=== PATIENT | male | born 1940 | race Caucasian/White ===

== ENCOUNTER 2018-01-03 17:22 | Observation (INO) | payer OTHER, MEDICARE ==
[2018-01-03] MEDS ORDERED: NS 1,000 ML IV ONE (17:40)
[2018-01-03] MEDS ORDERED: LORazepam 2 MG/ML INJ IVP ONE (17:41)
--- NOTE | 2018-01-03 17:52 | EDPHY ---
H & P Time Seen by Provider: 01/03/18 17:38 HPI/ROS: HPI Pork chop stuck in esophagus. 77-year-old male by private vehicle from work. The patient reports that he got home late from work last night. He reports that he ate a dried chunk of pork. He reports that he felt this gets stuck in his lower esophagus. He then had an episode of vomiting about 45 min later. He reports he has had this happen to him in the past and usually after he vomits he is able to swallow foods and liquids and his symptoms resolved. He reports however that his symptoms did not resolve after this episode of vomiting and since this time he has not been able to swallow any solid foods or liquids. He complains of a low-grade dull ache in his epigastric area. He reports he has had endoscopy in the past secondary to this problem but cannot give me specifics on findings. ROS: Constitutional: No fever, no chills. No weakness. Respiratory: No cough. No shortness of breath. Cardiac: No chest pain, no palpitations. Gastrointestinal: As above, no diarrhea. Genitourinary: No hematuria. No dysuria or increased frequency with urination. Musculoskeletal: No back pain. No neck pain. No myalgias or arthralgias. Skin: No rashes. Neurological: No headache. No focal weakness or altered sensation. Past medical history: Prostatic hypertrophy, hypertension, right-sided nephrectomy, as above. Social history: Here by himself currently. Nonsmoker. Denies alcohol. Physical Exam: General Appearance: Alert, large man, pleasant, no distress. This patient is responding to questions appropriately and in full sentences. This patient appears well-hydrated and well-nourished. Eyes: Pupils equal and round no pallor or injection. No lid edema, erythema or injection. Respiratory: There are no retractions, lungs are clear to auscultation with good air movement bilaterally. Cardiovascular: Regular rate and rhythm. No murmur. Gastrointestinal: Abdomen is soft and nontender, no masses, bowel sounds normal. No focal tenderness at McBurney's point. No Shearer sign. Neurological: Motor sensory function is grossly intact. Cranial nerves are normal. Gait is normal. Skin: Warm and dry, no rashes. Musculoskeletal: Neck is supple and nontender. Extremities are symmetrical. All joints range without pain or impingement. Psychiatric: No agitation. No depression. Database: EKG: EKG time is 6:17 p.m.; EKG shows a narrow complex normal sinus rhythm with a ventricular rate of 76. Intermittent ventricular bigeminy. The patient has a history of this. The DE, QRS, QT intervals are within normal limits. There are no ST-T wave changes indicative of ischemic or injury pattern. No evidence of right heart strain. Interpreted by me. Imaging: Procedures: Emergency department course: Vital signs reviewed. Hypertensive. Vital signs otherwise normal. IV placed. He was started on IV normal saline with 500 cc to 1 L to be given over the next hour. He he will receive 1 mg of IV Ativan to see if this helps his food bolus to past. Otherwise plan will be to call GI for endoscopy. 6:30 p.m., patient was given a glass of water. He did not tolerate this. Immediately came back up. Endoscopy paged. 7:00 p.m., spoke with on-call emergency services professional Dr. Jaron Greenberg. Case discussed in detail with him. He will take this patient to the endoscopy suite for further management. I discussed this plan with the patient. All of his questions were answered. He is arranging have somebody pick him up after this procedure is performed. 8:30 p.m., patient admitted to the endoscopy suite in stable condition. Differential Diagnosis: The differential diagnosis on this patient includes but is not limited to retained lower esophageal food bolus. Acute coronary syndrome, pulmonary embolism, perforated peptic ulcer, pancreatitis unlikely. This represents a partial list of diagnoses considered. These considerations are based on history , physical exam, past history, reassessment and diagnostic testing. Smoking Status: Never smoked Constitutional: Initial Vital Signs Temperature (C) 36.8 C 01/03/18 17:26 Heart Rate 76 01/03/18 17:26 Respiratory Rate 18 01/03/18 17:26 Blood Pressure 180/91 H 01/03/18 17:26 O2 Sat (%) 98 01/03/18 17:26 O2 Delivery Mode Room Air Allergies/Adverse Reactions: No Known Allergies Allergy (Verified 01/04/18 09:09) Home Medications: Medication Instructions Recorded Terazosin HCl 20 mg PO HS 01/03/18 Febuxostat [Uloric] 80 mg PO DAILY 07/12/18 Losartan Potassium [Cozaar 25 mg 25 mg PO DAILY 01/04/18 (*)] Oxymetazoline HCl [Afrin Nasal 1 spray [place] BID PRN 01/04/18 [place] (OTC)] Triamcinolone 0.025% 1 [place] TP BID 01/04/18 [Triamcinolone 0.025% cream (*)] Medical Decision Making - Data Points Laboratory Results: Laboratory Results 01/03/18 18:15 01/03/18 18:15 Medications Given: Hydralazine HCl (Apresoline) 10 mg IVP Q6 PRN PRN Reason: SBP>160 Stop: 07/02/18 22:50 Last Admin: 01/04/18 03:54 Dose: 10 mg Sodium Chloride (Ns) 1,000 mls @ 100 mls/hr IV CONT WALDEMAR Stop: 07/02/18 22:44 Last Admin: 01/03/18 23:05 Dose: 1,000 mls Pantoprazole Sodium (Protonix) 40 mg PO DAILY WALDEMAR Stop: 07/02/18 22:44 Last Admin: 01/04/18 09:46 Dose: 40 mg Trazodone HCl (Trazodone) 50 mg PO HS WALDEMAR Stop: 07/02/18 22:45 Last Admin: 01/03/18 23:05 Dose: 50 mg Discontinued Medications Sodium Chloride (Ns) 1,000 mls @ 0 mls/hr IV EDNOW ONE; Wide Open PRN Reason: Protocol Stop: 01/03/18 17:41 Last Admin: 01/03/18 18:21 Dose: 1,000 mls Lorazepam (Ativan Injection) 1 mg IVP EDNOW ONE Stop: 01/03/18 17:42 Last Admin: 01/03/18 18:21 Dose: 1 mg Departure - Departure Disposition: To OP Cath/Surgery Clinical Impression: Food impaction of esophagus
--- NOTE | 2018-01-03 18:19 | CPEKG ---
Heart Rate: 79 RR Interval: 759 P-R Interval: 188 QRSD Interval: 100 QT Interval: 372 QTC Interval: 427 P [place]: 43 QRS [place]: -85 T Wave [place]: 26 EKG Severity - ABNORMAL ECG - EKG Impression: SINUS RHYTHM EKG Impression: VENTRICULAR BIGEMINY EKG Impression: PROBABLE INFERIOR INFARCT, AGE INDETERMINATE Electronically Signed By: Mike Eldridge 03-Jan-2018 22:03:38
[2018-01-03 18:40] LABS: PLATELET COUNT 173 10^3/uL (150-400)
--- NOTE | 2018-01-03 20:04 | POSTANESTH ---
Post Anesthetic Evaluation Cardiovascular Status: Similar to Pre-Op Cond (BP still high. Appears that patient is chronically poorly controlled given history of recent prescription for 2nd antihypertensive that pt has not started taking yet.) Respiratory Status: Normal, Stable Level of Consciousness/Mental Status: Can Participate in Eval, Alert and Oriented Pain Control: Adequate, Prn Tx Ordered Nausea/Vomiting Control: Adequate, Prn Tx Ordered Complications Possibly Related to Anesthesia: None Noted
--- NOTE | 2018-01-03 20:07 | PDANEPAE ---
ANE History of Present Illness 77 yo male with h/o esophageal stricture requiring dilation now with food stuck in esophagus. ANE Past Medical History - Cardiovascular History Hx Hypertension: Yes Hx Arrhythmias: No Hx Chest Pain: No Hx Coronary Artery / Peripheral Vascular Disease: No Hx CHF / Valvular Disease: No Hx Palpitations: No - Pulmonary History Hx COPD: No Hx Asthma/Reactive Airway Disease: No Hx Oxygen in Use at Home: No Hx Sleep Apnea: Yes Pulmonary History Comment: PCP has told pt he has PETRA. Trialed CPAP - pt did not tolerate device. - Endocrine History Hx Diabetes: No Hypothyroid: No Hyperthyroid: No Obesity: mild - Renal History Hx Renal Disorders: Yes Renal History Comment: RCC s/p nephrectomy 2007 - Liver History Hx Hepatic Disorders: No - GI History Gastrointestinal History Comment: esophageal stricture s/p esophageal dilation x2 - Other Health History Other Health History: gout ANE Review of Systems Review of Systems: - Systems Constitutional: Reports: no symptoms Gastrointestinal: Reports: other ANE Patient History - Allergies Allergies/Adverse Reactions: No Known Allergies Allergy (Unverified 01/03/18 17:25) - Home Medications Home Medications: Terazosin HCl 01/03/18 [Last Taken Unknown] - NPO status NPO Since - Liquids (Date): 01/03/18 NPO Since - Liquids (Time): 02:00 NPO Since - Solids (Date): 01/03/18 NPO Since - Solids (Time): 02:00 - Anes Hx Anes Hx: no prior problems - Smoking Hx Smoking Status: Never smoked Marijuana use: No - Alcohol Use Alcohol Use: Rarely - Family Anes Hx Family Anes Hx: neg - N/A ANE Labs/Vital Signs - Labs Result Diagrams: 01/03/18 18:15 01/03/18 18:15 - Vital Signs Blood Pressure: 163/69 Heart Rate: 66 Respiratory Rate: 18 O2 Sat (%): 95 Height: 182.88 cm Weight: 112.037 kg ANE Physical Exam - Airway Neck exam: FROM Mallampati Score: Class 2 - Pulmonary Pulmonary: clear to auscultation - Cardiovascular Cardiovascular: other (PVCs on monitor, obvious skipped beats on pulse palpation ) ANE Anesthesia Plan Anesthesia Plan: general endotracheal anesthesia
[2018-01-03] MEDS ORDERED: LIDOCAINE 2% 5 ML SDV ONE (20:15)
[2018-01-03] MEDS ORDERED: ROCURONIUM 50 MG/5 ML VIAL ONE (20:15)
[2018-01-03] MEDS ORDERED: PROPOFOL 200 MG/20 ML VIAL ONE (20:16)
[2018-01-03] MEDS ORDERED: fentaNYL 100 MCG/2 ML INJ ONE (20:16)
--- NOTE | 2018-01-03 20:22 | PDHPUP ---
History & Physical Update H&P update statement: This history and physical update is based on an assessment of the patient which was completed after admission or registration (within 24 hours), but prior to the surgery/procedure. H&P update: H&P reviewed & patient examined, no change in patient's condition since H&P completed
--- NOTE | 2018-01-03 20:23 | SOAPPROG ---
SOAP Progress Note Assessment/Plan: Assessment:Plan: see full dictated consult hx intermittent dysphagia w/o reflux sx's c/w EoE now with poss FB in esoph urgent EGD with anesthesia Jaron Greenberg MD 01/03/18 20:22 Objective: Vital Signs Temp Pulse Resp BP Pulse Ox 36.6 C 66 18 163/69 H 95 01/03/18 20:08 01/03/18 20:08 01/03/18 20:08 01/03/18 20:08 01/03/18 20:08 Laboratory Results 01/03/18 18:15 01/03/18 18:15 01/02/18 01/03/18 01/04/18 05:59 05:59 05:59 Intake Total 1000 Balance 1000 ICD10 Worksheet Patient Problems: Problems Problem Status Onset Food impaction of esophagus Acute
[2018-01-03] MEDS ORDERED: DEXAMETHASONE 4 MG/ML VIAL ONE (20:28)
[2018-01-03] MEDS ORDERED: SUCCINYLCHOLINE CHLORIDE 200 MG/10 ML SYR IVP ONE (20:28)
--- NOTE | 2018-01-03 21:41 | GIREPORT ---
[facility] - Endoscopy Department Patient Name: Shiva Castellanos Procedure Date: 01/03/2018 8:10 PM Patient Type: Inpatient Attending MD/ ER Physician: Preston Escalante Procedure: Upper GI endoscopy Indications: Dysphagia, Foreign body in the esophagus Providers: Onofre Greenberg MD Requesting Provider: Amy Petersen MD Medicines: General Anesthesia Complications: No immediate complications. Estimated blood loss: Minimal. Description of Procedure: After obtaining informed consent, the endoscope was passed under direct vision. Throughout the procedure, the patient's blood pressure, pulse, and oxygen saturations were monitored continuously. The Endoscope was intro duced through the mouth, and advanced to the third part of duodenum. The uppe r GI endoscopy was accomplished without difficulty. The patient tolerated th e procedure well. Findings: Food was found in the lower third of the esophagus. Removal was accompl ished with a large-capacity forceps and Rubalcava net. Estimated blood loss was mi nimal. The upper third of the esophagus was normal. Biopsies were taken with a cold forceps for histology. Estimated blood loss was minimal. Localized mild mucosal changes characterized by erythema and inflammati on were found in the lower third of the esophagus. Biopsies were taken wit h a cold forceps for histology. Estimated blood loss was minimal. One stenosis was found at the gastroesophageal junction. This stenosis was moderately severe and. The stenosis was traversed. A TTS dilator was pa ssed through the scope. Dilation with a 12-13.5-15 mm x 5.5 cm CRE balloon dilator was performed to 15 mm. The dilation site was examined and show ed mild improvement in luminal narrowing. Estimated blood loss was minimal . Localized moderate mucosal changes characterized by congestion, erythem a and inflammation were found at the gastroesophageal junction. Biopsies were taken with a cold forceps for histology. Estimated blood loss was minim al. Scattered moderate inflammation characterized by erosions, erythema, friability and granularity was found in the duodenal bulb and in the fi rst portion of the duodenum. Biopsies were taken with a cold forceps for histology. Estimated blood loss was minimal. The second portion of the duodenum was normal. Biopsies were taken with a cold forceps for histology. Estimated blood loss was minimal. The exam was otherwise without abnormality. Estimated Blood Loss: Estimated blood loss was minimal. Post Op Diagnosis: - Food was found in the esophagus. Removal was successful. - Normal upper third of esophagus. Biopsied. - Erythematous, inflamed mucosa in the esophagus. Biopsied. - Esophageal stenosis. Dilated. - Congested, erythematous and inflamed mucosa in the gastroesophageal junction. Biopsied. - Duodenitis. Biopsied. - Normal second portion of the duodenum. Biopsied. - The examination was otherwise normal. Recommendation: - Await pathology results. - My office will call with the pathology result with 5-7 days. If you h ave not heard from my office by 12-14, do not assume the pathology is brandy l, please call [phone] to get the pathology results. - Use Protonix (pantoprazole) 40 mg PO daily. Take 30-60 minutes before breakfast. - Follow an antireflux regimen. - Cut food into small pieces and chew well. - If biopsy are consistent with Eosinophilic Esophagitis (EoE), then re alex to registered dietitian and consider swallowed not inhaled fluticasone prn. - Observe patient in same day observation unit for ongoing care. Given his untreteed sleep apnea. Discharge in am - Resume regular diet. - Return to GI clinic in 6 weeks. - Repeat upper endoscopy in 4 weeks for retreatment, pending biopst res ults. - Return to primary care physician as previously scheduled. - Thank you for allowing me to help in your patient's care. Do not hesi bhagat to call with any questions. Attending Participation: I personally performed the entire procedure. Yari Adhikari M.D Onofre Greenberg MD 01/03/2018 9:40:28 PM This report has been signed electronicallyMathew MD Yari Number of Addenda: 0 Note Initiated On: 01/03/2018 8:10 PM [email or web address]
[2018-01-03] MEDS ORDERED: ACETAMINOPHEN 500 MG TAB PO PRN (21:51)
[2018-01-03] MEDS ORDERED: ONDANSETRON 4 MG/2 ML VIAL IVP PRN ×2 (21:51→22:44)
[2018-01-03] MEDS ORDERED: LR 500 ML IV PRN (21:51)
[2018-01-03] MEDS ORDERED: NALOXONE HCL 0.4 MG/ML INJ IVP PRN (21:51)
[2018-01-03] MEDS ORDERED: ACETAMINOPHEN 325 MG TAB PO PRN (22:44)
[2018-01-03] MEDS ORDERED: PROMETHAZINE HCL 25 MG/ML INJ IVP PRN (22:44)
[2018-01-03] MEDS ORDERED: NS 1,000 ML IV SCH (22:45)
[2018-01-03] MEDS ORDERED: traZODone 50 MG TAB PO SCH (22:46)
[2018-01-03] MEDS ORDERED: hydrALAZINE 20 MG/ML VIAL IVP PRN (22:51)
[2018-01-03] MEDS: PANTOPRAZOLE SODIUM 40 MG TAB PO SCH (23:05)
--- NOTE | 2018-01-03 23:13 | GCON ---
[f rep st] CONSULTATION DATE OF CONSULTATION: 01/03/2018 REFERRING PHYSICIAN: Mike Eldridge DO INDICATION FOR CONSULTATION: History of dysphagia and probable foreign body. HPI: The patient is a pleasant 77-year-old male, who has a past medical history significant for gout, blood pressure that has required the addition of a 2nd medication initially, and sleep apnea. He says he has had intermittent dysphagia. So, he remembers having endoscopies in the past where he has had dilations done down in [place], which is probably [facility], [facility], Dr. Spencer Simmons. He has not had any endoscopy in many years and has not had problems with dysphagia. He does have hay fever, allergies that have been acting up recently. Last night, he went home and was going to cook a pork chop but, unfortunately, dosed off. The pork chop was over cooked. He then decided he would try to eat it and ate a large piece that got lodged in his esophagus at approximately 2 a.m. He thought it would pass, and it has not passed. He presents to the emergency room this evening for evaluation. They tried a number of different maneuvers, including Ativan, which were not successful, and they contacted me to evaluate him for probable foreign body in his esophagus and history of dysphagia. The patient did not complain of recurrent heartburn symptoms or regurgitation. He has not had any dysphagia recently. He does not take any nonsteroidal anti- inflammatory drugs. He denies chest pain, diaphoresis. He does not have any abdominal pain. There has been no change in his stool habits. He is now in the emergency room with a possible foreign body, and I have been called in to help and evaluate and treat in that regard. PAST MEDICAL/SURGICAL HISTORY: Gout, hypertension, BPH, sleep apnea. 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 MEDICATIONS AT HOME: Include Uloric for gout, terasozin for BPH, and he cannot remember his 2nd blood pressure medication. ALLERGIES: NKDA SOCIAL HISTORY: Drinks alcohol rarely. Does not smoke cigarettes. FAMILY HISTORY: An uncle may have had cancer in his 60s. He does not know of anyone specifically with colon cancer or colon polyps in his family other than himself. He remembers having 1 or 2 polyps with a colonoscopy, and that was more than 5 years ago. REVIEW OF SYSTEMS: A complete review of systems was performed and is negative other than noted in the HPI. PHYSICAL EXAM: GENERAL: A well-developed, well-nourished, overweight male in no acute distress, sitting in his bed. VITAL SIGNS: Blood pressure is 163/69. Pulse is 66, respiratory rate 18. He is 95% on room air. Temperature 36.6. EYES: Anicteric. FARZANEH. EOMI. MOUTH: No lesions. Moist mucous membranes. NECK: Supple. Full range of motion. No JVD. BACK: No spine tenderness. No CVA tenderness. LUNGS: Clear to auscultation. CARDIAC: S1, S2. Regular rate and rhythm. No murmurs, rubs or gallops appreciated. ABDOMEN: Bowel sounds are normal pitch. Incision is soft, nontender. No hepatosplenomegaly. EXTREMITIES: No cyanosis, clubbing, or edema. NEUROLOGIC: Cranial nerves intact. Nonfocal. SKIN: No stigmata of advanced liver disease. No rashes. LABORATORY DATA: WBC 6.93, hemoglobin 16.5, hematocrit 47.6, platelet count 173. Sodium 141, potassium 4.1, chloride 110, bicarb 22, BUN 19, creatinine 1.5 , glucose 98, calcium 9.3. ASSESSMENT: 1. Probable foreign body in a patient with intermittent dysphagia and history of EGDs with dilations, possible eosinophilic esophagitis. 2. History of colon polyps. Last colonoscopy over 5 years ago. 3. Hypertension. 4. Benign prostatic hypertrophy. 5. Sleep apnea. RECOMMENDATIONS: 1. Urgent EGD for evaluation and treatment of foreign body, biopsies of both proximal and distal esophagus for eosinophilic esophagitis pending results of endoscopy. 2. Try to obtain his previous colonoscopy and endoscopy reports. If he has had precancerous polyps removed before, he should be on a 5-year colonoscopy interval. 3. Likely, I will be prescribing pantoprazole 40 mg once daily half an hour before breakfast. This is the initial treatment for EOE to see if it is PPI- responsive EOE and is certainly initial treatment for acid reflux issues. 4. Antireflux lifestyle changes. 5. Cut food into small pieces and chew very well. 6. Further recommendations to follow results of EGD. Given the patient's multiple medical issues, body habitus, untreated sleep apnea and possible foreign body in the esophagus, this would be a higher risk procedure than normal. I have asked Anesthesia to be present for the entire procedure. They will likely intubate the patient secondary to the possible foreign body and aspiration risks. Thank you for allowing me to participate in patient's healthcare. Do not hesitate to call me if you have any questions. Copy requested to: MD July Sanabria Dr. /[id number]/MODL MTDD
--- NOTE | 2018-01-03 23:33 | GHP ---
[f rep st] HISTORY AND PHYSICAL DATE OF ADMISSION: 01/03/2018 CHIEF COMPLAINT: Food stuck. HISTORY: Shiva is a 77-year-old male, who works as a trash collector truck driver. He got home at 2 o'clock in the morning last night, ate a pork chop. It got stuck in his lower esophagus. He has had this in past, and he can often vomit to clear the food out but this time he was completely unsuccessful in vomiting out the obstruction. He did vomit, but the obstruction persisted. He finally presented to the emergency room and went urgently to the EGD performed by Dr. Greenberg. He was found to have a piec e of pork stuck in the lower third of his esophagus. He had a coljmrzd-eg-dkyelv stenosis at the GE junction that was balloon dilated by Dr. Greenberg. Biopsies were performed. Plan is for Protonix and repeat EGD in 4 weeks for retreatment. Postsurgery, there was some concern with his untreated obstructive sleep apnea regarding his respirat ory status, so he is being admitted to observation for further respiratory monitoring with anticipati on of discharge home tomorrow when anesthesia has worn off. PAST MEDICAL HISTORY: 1. BPH. 2. Hypertension. 3. Right-sided nephrectomy for renal cell carcinoma. 4. Obstructive sleep apnea. CPAP noncompliant. 5. Insomnia. MEDICATIONS: Please see computer record for full detailed list. ALLERGIES: No known drug allergies. SOCIAL HISTORY: No smoking. No alcohol. He lives alone. He has a trash collector truck driver for [employer]. REVIEW OF SYSTEMS: Complete review of systems obtained. Review of systems negative on constitutiona l, HEENT, GI, pulmonary, cardiovascular, , hematology, skin, musculoskeletal, endocrine, and psych, except for positives as in HPI. FAMILY HISTORY: Reviewed and noncontributory to presenting complaint. PHYSICAL EXAMINATION: GENERAL: Well-developed, well-nourished male, in no acute distress. VITAL SI GNS: Temperature is 36.8, pulse 64, blood pressure 163/77, saturating 97% on 3 L. EYES: Normal con junctivae. Pupils equal, round, reactive to light. ENT: Normal ears and nose. Hearing intact. No rmal teeth. Oropharynx moist. NECK: Trachea midline. No thyromegaly. CHEST: Normal effort. ANGIE GS: Clear to auscultation bilaterally. CARDIOVASCULAR: Regular rhythm. No murmur. No extremity e tushar. ABDOMEN: Soft, nontender. No hepatosplenomegaly. SKIN: Warm, dry, intact. No rash. MUSCU LOSKELETAL: No cyanosis or clubbing. Strength 5/5 of upper and lower extremities. NEURO: Cranial nerves intact. Normal sensation to light touch. PSYCHIATRIC: Alert and oriented x3. Normal affect . Normal judgment. Normal memory. LABORATORY DATA: White count 6.93, hematocrit 47.6, platelets 173. Sodium 141, potassium 4.1, chlor carmen 110, bicarb 22, BUN 19, creatinine 1.5, glucose 98. EKG viewed by me. My personal interpretatio n is normal sinus rhythm, no ST-T wave changes. This case was personally discussed with Dr. Yari bakerarding findings on EGD. He thinks there is a possibility of malignancy, and biopsies are pending. ASSESSMENT/PLAN: 1. Esophageal stricture with status post foreign body dislodgement and subsequent dilation of the st ricture: He should be discharged on a proton pump inhibitor. Repeat esophagogastroduodenoscopy in 4 weeks for repeat dilation. Biopsies are pending, and per Dr. Greenberg, there is a possibility of this being malignant. For now, we are okay to advance his diet. 2. Obesity, body mass index of 39, with obstructive sleep apnea: He is continuous positive airway p ressure intolerant. Plan is to watch oxygen saturations closely post anesthesia. 3. Acute renal failure: He is probably dehydrated due to his decreased oral intake for the last 24 hours. We will hydrate with intravenous fluid overnight and recheck in the morning. 4. Hypertension: Blood pressures are very elevated here. We will monitor closely, and he may need to more aggressively pursue antihypertensive medications as an outpatient. 5. Benign prostatic hypertrophy: He takes Terazosin at home. He reports every 2 hours getting up i n the middle of the night to urinate with severe frequency. We will check a bladder scan to rule out bladder outlet obstruction. CODE STATUS: Full. ADMISSION STATUS: We will admit to observation. Re-evaluate tomorrow. DVT PROPHYLAXIS: He is high risk. We will place him on subcu Lovenox. /[id number]/MODL
[2018-01-04] MEDS: PANTOPRAZOLE SODIUM 40 MG TAB PO SCH (09:46)
[2018-01-04] MEDS ORDERED: OXYMETAZOLINE 30 ML NASAL SPRAY EACHNARE PRN (13:46)
--- NOTE | 2018-01-04 13:50 | PDDCSUM ---
Discharge Summary Discharge Summary: This is a 77 yo male who was admitted due to foreign esophageal body. He was admitted. GI was consulted. Endoscopy with foreign body removal was performed. He has been started on Protonix 40mg daily. Biopsies were obtained and GI will f /u with results. Repeat endoscopy in 4 weeks is needed He has a hx of CRI and unilateral kideny. He was given IVF. He is back to baseline DDX: -Esophageal foreign body -Acute on chronic renal failure -solitary kidney Exam: NAD AAOX3 RRR CTAB S/NT/ND MEDS: SEE MED REC, PROTONIX STARTED TOTAL TIME SPENT ON D/C IS 35 MIS
[2018-01-04] MEDS ORDERED: LOSARTAN POTASSIUM 25 MG TAB PO SCH (14:00)
[2018-01-04 14:14] VITALS: BP 163/74
[2018-01-04] MEDS ORDERED: TRIAMCINOLONE 0.025% 15 GM CRTUBE TP SCH (21:00)
[2018-01-04] MEDS ORDERED: TERAZOSIN HCL 5 MG CAP PO SCH (21:00)
[2018-01-05] MEDS ORDERED: FEBUXOSTAT PO SCH (09:00)
== END 2018-01-04 14:32 | disposition home or self-care (01) ==
LOC: FSGY 19:54 → F3E 21:14 → F2W 22:31
PROVIDERS: ADMIT Internal Medicine; ATTEND Family Medicine
PROC: 0D748ZZ Dilation of Esophagogastric Junction, Via Natural or Artificial Opening Endoscopic (ICD-10-PCS; principal; 2018-01-03 20:30)
PROC: 0DB18ZX Excision of Upper Esophagus, Via Natural or Artificial Opening Endoscopic, Diagnostic (ICD-10-PCS; principal; 2018-01-03 20:30)
PROC: 0DB38ZX Excision of Lower Esophagus, Via Natural or Artificial Opening Endoscopic, Diagnostic (ICD-10-PCS; principal; 2018-01-03 20:30)
PROC: 0DB98ZX Excision of Duodenum, Via Natural or Artificial Opening Endoscopic, Diagnostic (ICD-10-PCS; principal; 2018-01-03 20:30)
PROC: 0DC38ZZ Extirpation of Matter from Lower Esophagus, Via Natural or Artificial Opening Endoscopic (ICD-10-PCS; principal; 2018-01-03 20:30)
PROC: 0DB48ZX Excision of Esophagogastric Junction, Via Natural or Artificial Opening Endoscopic, Diagnostic (ICD-10-PCS; principal; 2018-01-03 20:30)
DX: G47.33 Obstructive sleep apnea (adult) (pediatric) (principal); K22.2 Esophageal obstruction; T18.128A Food in esophagus causing other injury, initial encounter; K29.80 Duodenitis without bleeding; N17.9 Acute kidney failure, unspecified; N18.9 Chronic kidney disease, unspecified; E86.9 Volume depletion, unspecified; R13.10 Dysphagia, unspecified; N40.1 Benign prostatic hyperplasia with lower urinary tract symptoms; I10 Essential (primary) hypertension; G47.00 Insomnia, unspecified; E66.9 Obesity, unspecified; Z68.39 Body mass index [BMI] 39.0-39.9, adult; M10.9 Gout, unspecified; Y92.009 Unspecified place in unspecified non-institutional (private) residence as the place of occurrence of the external cause; Z85.528 Personal history of other malignant neoplasm of kidney; Z86.010 Personal history of colon polyps; Z90.5 Acquired absence of kidney
CPT/HCPCS: 43239; 43247; 43249; 93005; 96374; 99285; C1726; G0378; J0330; J0360; J1100; J2060; J2704; J3010

== ENCOUNTER 2018-10-02 12:49 | Emergency (ER) | payer OTHER, MEDICARE ==
[2018-10-02 13:06] VITALS: BP 175/89
--- NOTE | 2018-10-02 13:21 | EDPHY ---
H & P Stated Complaint: Left ear pain for a few weeks, now left side facial pain Time Seen by Provider: 10/02/18 13:11 HPI/ROS: CHIEF COMPLAINT: Left ear pain HISTORY OF PRESENT ILLNESS: The patient is a 77-year-old man who comes to the emergency department complaining of pain to his left ear for the last 3 weeks. He states that it has gradually gotten worse. He has not had a fever. He denies any trauma. He denies any hearing loss. He denies any vision loss or double vision. No claudication. No discharge. Denies tinnitus. He describes it as a fullness. He made an appointment with his dentist for because he thought it may be a tooth issue. Severity: Moderate Modifying factors: None REVIEW OF SYSTEMS: Constitutional: denies: chills, fever, recent illness, recent injury EENTM: See HPI denies: blurred vision, double vision, nose congestion Respiratory: denies: cough, shortness of breath Cardiac: denies: chest pain, irregular heart rate, lightheadedness, palpitations Gastrointestinal/Abdominal: denies: abdominal pain, diarrhea, nausea, vomiting, blood streaked stools Genitourinary: denies: dysuria, frequency, hematuria, pain Musculoskeletal: denies: joint pain, muscle pain Skin: denies: lesions, rash, jaundice, bruising Neurological: denies: headache, numbness, paresthesia, tingling, dizziness, weakness Hematologic/Lymphatic: denies: blood clots, easy bleeding, easy bruising Immunologic/allergic: denies: HIV/AIDS, transplant 10 systems reviewed and negative except as noted EXAM: GENERAL: Well-appearing, well-nourished and in no acute distress. HEAD: Atraumatic, normocephalic. Nontender synagogue areas, no erythema EYES: Pupils equal round and reactive to light, extraocular movements intact, sclera anicteric, conjunctiva are normal. ENT: TMs normal, no cerumen impaction, no surrounding erythema or tenderness. nares patent, oropharynx clear without exudates. Moist mucous membranes. No obvious TMJ clicking or pain. Does have a posterior axillary the dental alejandra visible but no obvious tenderness or fluctuance. No lymphadenopathy NECK: Normal range of motion, supple without lymphadenopathy or JVD. LUNGS: Breath sounds clear to auscultation bilaterally and equal. No wheezes rales or rhonchi. HEART: Regular rate and rhythm without murmurs, rubs or gallops. ABDOMEN: Soft, nontender, normoactive bowel sounds. No guarding, no rebound. No masses appreciated. BACK: No CVA tenderness, no spinal tenderness, step-offs or deformities EXTREMITIES: Normal range of motion, no pitting or edema. No clubbing or cyanosis. NEUROLOGICAL: Cranial nerves II through XII grossly intact. Normal speech, normal gait. 5/5 strength, normal movement in all extremities, normal sensation , normal reflexes PSYCH: Normal mood, normal affect. SKIN: Warm, dry, normal turgor, no visible rashes or lesions. Source: Patient Exam Limitations: No limitations - Medical/Surgical History Hx Asthma: No Hx Chronic Respiratory Disease: No Hx Diabetes: No Hx Cardiac Disease: No Hx Renal Disease: No Hx Cirrhosis: No Hx Alcoholism: No Hx HIV/AIDS: No Hx Splenectomy or Spleen Trauma: No Other PMH: BPH, htn, age 6 yrs brain surgery,. R nephrectomy CA 2006 - Family History Significant Family History: No pertinent family hx - Social History Smoking Status: Never smoked Alcohol Use: None Constitutional: Initial Vital Signs Temperature (C) 36.8 C 10/02/18 13:00 Heart Rate 81 10/02/18 13:00 Respiratory Rate 18 10/02/18 13:00 Blood Pressure 175/89 H 10/02/18 13:00 O2 Sat (%) 94 10/02/18 13:00 O2 Delivery Mode Room Air Allergies/Adverse Reactions: No Known Allergies Allergy (Verified 10/02/18 12:56) Home Medications: Medication Instructions Recorded Terazosin HCl HS 01/03/18 Febuxostat [Uloric] DAILY 01/04/18 Medical Decision Making ED Course/Re-evaluation: Patient is well appearing. He is afebrile. No swelling. No claudication. I suspect that his pain is due to his dental alejandra versus possible TMJ dysfunction. His symptoms are not consistent with malignant otitis or mastitis or prostatitis or giant cell arteritis. Discussed these is possibilities and thinks that watch for. Discussed positives and negatives the CT scanning and decided to defer at this time. He will follow up with his dentist on and I will refer him to ENT as well. Differential Diagnosis: Partial list of the Differential diagnosis considered include but were not limited to; TMJ dysfunction, dental caries, cerumen impaction, otitis media and although unlikely based on the history and physical exam, I also considered giant cell arteritis, malignant otitis, fracture. I discussed these differential diagnoses and the plan with the patient as well as the usual and expected course. The patient understands that the diagnosis is provisional and that in medicine we are not always correct and that further workup is often warranted. Usual and customary warnings were given. All of the patient's questions were answered. The patient was instructed to return to the emergency department should the symptoms at all worsen or return, otherwise to followup with the physician as we discussed. Departure - Departure Disposition: Home, Routine, Self-Care Clinical Impression: Left ear pain Condition: Fair Instructions: Earache (ED) Referrals: NONE *PRIMARY CARE P,. [Primary Care Provider] - As per Instructions Lalitha Pugh, PAC [Physician [employer] Specialist] - 2-3 days, call for appt.
== END 2018-10-02 13:37 | disposition home or self-care (01) ==
LOC: CED 12:49
DX: H92.02 Otalgia, left ear (principal)
CPT/HCPCS: 99282-ER

== ENCOUNTER 2018-10-18 07:53 | Day surgery (SDC) | payer OTHER, MEDICARE ==
[2018-10-18] MEDS ORDERED: LR 1,000 ML IV ONE (08:22)
--- NOTE | 2018-10-18 09:26 | PDANEPAE ---
ANE Past Medical History - Cardiovascular History Hx Hypertension: Yes Hx Arrhythmias: No Hx Chest Pain: No Hx Coronary Artery / Peripheral Vascular Disease: No Hx CHF / Valvular Disease: No Hx Palpitations: No Cardiovascular History Comment: BP OCCAS RUNS HIGH BUT NO MEDS CURRENTLY - Pulmonary History Hx COPD: No Hx Asthma/Reactive Airway Disease: No Hx Recent Upper Respiratory Infection: No Hx Oxygen in Use at Home: No Hx Sleep Apnea: No Sleep Apnea Screening Result - Last Documented: Positive Pulmonary History Comment: PCP has told pt he has PETRA. Trialed CPAP - pt did not tolerate device. SINUS CONGESTION - Neurologic History Hx Cerebrovascular Accident: No Hx Seizures: No Hx Dementia: No Neurologic History Comment: BRAIN SURGERY CHILD FOR CLOT - Endocrine History Hx Diabetes: No - Renal History Hx Renal Disorders: Yes Renal History Comment: RCC s/p nephrectomy 2006 - Liver History Hx Hepatic Disorders: No - Neurological & Psychiatric Hx Hx Neurological and Psychiatric Disorders: No - Cancer History Hx Cancer: Yes Cancer History Comment: RENAL CA - Congenital Disorder History Hx Congenital Disorders: No - GI History Hx Gastrointestinal Disorders: Yes Gastrointestinal History Comment: esophageal stricture s/p esophageal dilation x2 - Other Health History Other Health History: gout. Sinus issues - Chronic Pain History Chronic Pain: No - Surgical History Prior Surgeries: shoulder surgery 1988. R NEPHRECTOMY 2007. BRAIN CLOT AT AGE 6 REMOVED ANE Review of Systems Review of Systems: - Exercise capacity METS (RN): 4 METS ANE Patient History - Allergies Allergies/Adverse Reactions: No Known Allergies Allergy (Verified 10/02/18 12:56) - Home Medications Home Medications: Terazosin HCl HS 01/03/18 [Last Taken 10/17/18] Febuxostat [Uloric] DAILY 01/04/18 [Last Taken 10/17/18] - NPO status NPO Since - Liquids (Date): 10/17/18 NPO Since - Liquids (Time): 23:55 NPO Since - Solids (Date): 10/17/18 NPO Since - Solids (Time): 09:00 - Smoking Hx Smoking Status: Never smoked - Family Anes Hx Family Hx Anesthesia Complications: none ANE Labs/Vital Signs - Vital Signs Blood Pressure: 176/88 Heart Rate: 72 Respiratory Rate: 16 O2 Sat (%): 94 Height: 182.88 cm Weight: 130.181 kg ANE Physical Exam - Airway Mallampati Score: Class 2 - ASA Status ASA Status: II ANE Anesthesia Plan Urgent/Emergent Case: Anes eval completed preop but documented later for safe timely pt care
[2018-10-18] MEDS ORDERED: PROPOFOL/EMULSION 500 MG/50 ML BOTTLE IV ONE (09:35)
--- NOTE | 2018-10-18 09:45 | PDGENHP ---
History & Physical Chief Complaint: dysphagia, phx polyps History of Present Illness: gerd with esoph stricture, hx polyps Pertinent Past, Social, Family History: no tobacco' rare alcohol. fhx no cc nor polyps. BPR, gout gerd Relevant Physical Exam: A+Ox3. CTA. S1S2. +BS soft, nt Cardiorespiratory Assessment: class II
[2018-10-18] MEDS ORDERED: PROPOFOL 200 MG/20 ML VIAL ONE (10:21)
[2018-10-18] MEDS ORDERED: fentaNYL 100 MCG/2 ML INJ IVP PRN (11:00)
[2018-10-18] MEDS ORDERED: ONDANSETRON 4 MG/2 ML VIAL IVP PRN (11:00)
[2018-10-18] MEDS ORDERED: NALOXONE HCL 0.4 MG/ML INJ IVP PRN (11:00)
--- NOTE | 2018-10-18 11:01 | POSTANESTH ---
Post Anesthetic Evaluation Cardiovascular Status: Normal, Stable Respiratory Status: Normal, Stable Level of Consciousness/Mental Status: Can Participate in Eval Pain Control: Adequate, Prn Tx Ordered Nausea/Vomiting Control: Adequate, Prn Tx Ordered Complications Possibly Related to Anesthesia: None Noted
--- NOTE | 2018-10-18 11:51 | GIREPORT ---
[facility] Surgical Services - Endoscopy Department Patient Name: Shiva Castellanos Procedure Date: 10/18/2018 9:37 AM Patient Type: Outpatient Attending MD/ ER Physician: Jaron Greenberg MD Procedure: Colonoscopy Indications: High risk colon cancer surveillance: Personal history of colonic polyps Providers: Jaron Greenberg MD Referring MD: Amy Petersen MD Medicines: Propofol per Anesthesia Complications: No immediate complications. Estimated blood loss: Minimal. Description of Procedure: After obtaining informed consent, the scope was passed under direct vis ion. Throughout the procedure, the patient's blood pressure, pulse, and oxyg en saturations were monitored continuously. The Colonoscope with irrigatio n channel was introduced through the anus and advanced to the cecum, identified by the appendiceal orifice, ileocecal valve and palpation. T he colonoscopy was performed without difficulty. The patient tolerated the procedure well. The quality of the bowel preparation was good. Findings: The digital rectal exam was normal. A 13 mm polyp was found in the distal ascending colon. The polyp was semi-pedunculated. The polyp was removed with a hot snare. Resection an d retrieval were complete. Estimated blood loss was minimal. Four sessile and semi-sessile polyps were found in the proximal transve rse colon. The polyps were 3 to 7 mm in size. These polyps were removed wit h a cold snare. Resection was complete, but the polyp tissue was only parti ally retrieved. Estimated blood loss was minimal. A 2 mm polyp was found in the proximal transverse colon. The polyp was sessile. The polyp was removed with a cold biopsy forceps. Resection an d retrieval were complete. Estimated blood loss was minimal. Six sessile and semi-sessile and semi-pedunculated polyps were found in the distal transverse colon. The polyps were 3 to 8 mm in size. These polyp s were removed with a cold snare. Resection was complete, but the polyp t issue was only partially retrieved. Estimated blood loss was minimal. Two sessile polyps were found in the distal transverse colon. The polyp s were 2 to 3 mm in size. These polyps were removed with a piecemeal tech nique using a cold biopsy forceps. Resection and retrieval were complete. Estimated blood loss was minimal. A few small-mouthed diverticula were found in the sigmoid colon and descending colon. The exam was otherwise without abnormality. Estimated Blood Loss: Estimated blood loss was minimal. Post Op Diagnosis: - One 13 mm polyp in the distal ascending colon, removed with a hot sna re. Resected and retrieved. - Four 3 to 7 mm polyps in the proximal transverse colon, removed with a cold snare. Complete resection. Partial retrieval. - One 2 mm polyp in the proximal transverse colon, removed with a cold biopsy forceps. Resected and retrieved. - Six 3 to 8 mm polyps in the distal transverse colon, removed with a c old snare. Complete resection. Partial retrieval. - Two 2 to 3 mm polyps in the distal transverse colon, removed piecemea l using a cold biopsy forceps. Resected and retrieved. - Diverticulosis in the sigmoid colon and in the descending colon. - The examination was otherwise normal. Recommendation: - Await pathology results. - Repeat colonoscopy in 2 years for surveillance. - Refer to Dr. [facility] given significant polyp burden. - High fiber diet indefinitely. - 30-35 grams of dietary fiber per day. Can use supplemental fiber. - A high fiber diet may decrease risk of complications from diverticulo sis. There is no need to avoid seeds or nuts. - Patient has a contact number available for emergencies. The signs and symptoms of potential delayed complications were discussed with the pat ient. Return to normal activities tomorrow. Written discharge instructions we re provided to the patient. - Continue present medications. - Avoid Aspirin and NSAIDs for 7-10 days except as used for cardiac or stroke prevention. - Discharge patient to home (ambulatory). - Return to primary care physician as previously scheduled. - Return to GI clinic in 3 months. - See EGD for other recommendations - Thank you for allowing me to help in your patient's care. Do not hesi bhagat to call with any questions. Attending Participation: I personally performed the entire procedure. Yari Adhikari M.D Jaron Greenberg MD 10/18/2018 11:50:32 AM This report has been signed electronicallyMattemilia Greenberg MD Number of Addenda: 0 Note Initiated On: 10/18/2018 9:37 AM Total Procedure Duration Time 0 hours 32 minutes 33 seconds [email or web address]
--- NOTE | 2018-10-18 11:58 | GIREPORT ---
[facility] Surgical Services - Endoscopy Department Patient Name: Shiva Castellanos Procedure Date: 10/18/2018 9:35 AM Patient Type: Outpatient Attending MD/ ER Physician: Jaron Greenberg MD Procedure: Upper GI endoscopy Indications: Dysphagia, For therapy of esophageal stricture Providers: Jaron Greenberg MD Referring MD: Amy Petersen MD Medicines: Propofol per Anesthesia = IV general with spont resps Complications: No immediate complications. Estimated blood loss: Minimal. Description of Procedure: After obtaining informed consent, the endoscope was passed under direct vision. Throughout the procedure, the patient's blood pressure, pulse, and oxygen saturations were monitored continuously. The Endoscope was intro duced through the mouth, and advanced to the third part of duodenum. The uppe r GI endoscopy was accomplished without difficulty. The patient tolerated th e procedure well. Findings: The upper third of the esophagus and middle third of the esophagus were normal. Diffuse mild erythema was found in the lower third of the esophagus. Biopsies were taken with a cold forceps for histology. Estimated blood loss was minimal. One benign-appearing, intrinsic moderate stenosis was found at the gastroesophageal junction. This stenosis measured 1 cm (in length). The stenosis was traversed. A TTS dilator was passed through the scope. Dil ation with a 15-16.5-18 mm x 5.5 cm CRE balloon dilator was performed to 18 m m. The dilation site was examined and showed moderate mucosal disruption. Estimated blood loss was minimal. A small hiatal hernia was present. Scattered mild inflammation characterized by adherent blood, erosions, erythema, friability and granularity was found in the gastric body and in the gastric antrum. Biopsies were taken with a cold forceps for histolo gy. Estimated blood loss was minimal. The examined duodenum was normal. The exam was otherwise without abnormality. Estimated Blood Loss: Estimated blood loss was minimal. Post Op Diagnosis: - Normal upper third of esophagus and middle third of esophagus. - Erythema in the lower third of the esophagus. Biopsied. - Benign-appearing esophageal stenosis. Dilated. - Small hiatal hernia. - Gastritis. Biopsied. - Normal examined duodenum. - The examination was otherwise normal. Recommendation: - Await pathology results. - My office will call with the pathology result with 5-7 days. If you h ave not heard from my office by 14, do not assume the pathology is brandy l, please call [phone] to get the pathology results. - If biopsy are consistent with Eosinophilic Esophagitis (EoE), then re alex to school fundraising director and consider swallowed not inhaled fluticasone prn. - Follow an antireflux regimen. - Use Protonix (pantoprazole) 40 mg PO daily for 1 month. Then change t o Zantac (ranitidine) 150 mg PO BID. - With no evidence of Maria's, the correct amount of acid reducing mediations is the lest amount that controls his symptoms and prevents stenosis from reoccurring Can change between PPI and H2RA as needed. - Perform a colonoscopy today. - Return to GI clinic in 3 months. - Return to primary care physician as previously scheduled. - Thank you for allowing me to help in your patient's care. Do not hesi bhagat to call with any questions. Attending Participation: I personally performed the entire procedure. Yari Adhikari M.D Jaron Greenberg MD 10/18/2018 11:57:36 AM This report has been signed electronicallyMattemilia Greenberg MD Number of Addenda: 0 Note Initiated On: 10/18/2018 9:35 AM [email or web address]
[2018-10-18 12:03] VITALS: BP 155/79
== END 2018-10-18 12:17 | disposition home or self-care (01) ==
LOC: FSGY 07:53
PROVIDERS: ATTEND Internal Medicine Gastroenterology
PROC: 0DB38ZX Excision of Lower Esophagus, Via Natural or Artificial Opening Endoscopic, Diagnostic (ICD-10-PCS; principal; 2018-10-18 09:45)
PROC: 0DBK8ZX Excision of Ascending Colon, Via Natural or Artificial Opening Endoscopic, Diagnostic (ICD-10-PCS; principal; 2018-10-18 09:45)
PROC: 0DB68ZX Excision of Stomach, Via Natural or Artificial Opening Endoscopic, Diagnostic (ICD-10-PCS; principal; 2018-10-18 09:45)
PROC: 0DB78ZX Excision of Stomach, Pylorus, Via Natural or Artificial Opening Endoscopic, Diagnostic (ICD-10-PCS; principal; 2018-10-18 09:45)
PROC: 0DBL8ZX Excision of Transverse Colon, Via Natural or Artificial Opening Endoscopic, Diagnostic (ICD-10-PCS; principal; 2018-10-18 09:45)
DX: K22.2 Esophageal obstruction (principal); K21.9 Gastro-esophageal reflux disease without esophagitis; R13.10 Dysphagia, unspecified; D12.2 Benign neoplasm of ascending colon; D12.3 Benign neoplasm of transverse colon; I10 Essential (primary) hypertension; Z85.528 Personal history of other malignant neoplasm of kidney; Z90.5 Acquired absence of kidney
CPT/HCPCS: 43239; 43249; 45380; 45385; C1726; J2704